=== PATIENT | male | born 1955 | race Caucasian/White ===

== ENCOUNTER → 2017-07-19 | Outpatient (CLI) | payer OTHER ==
[~2017-07-19] MED LIST: ALBUTEROL 0.083% (NEB) 2.5 MG/3 ML AMP
[2017-07-19 10:28] LABS: AADO2 Arterial 60.1 mmHg (7.0-24.0); Arterial Base Excess -1.8 mmol/L (-3.0-3); Arterial Blood Gas Oxygen Sat 86.2 mmHG (95.0-98.0); Arterial COHb 0.2 % (0.0-3.0); Arterial Fraction of Oxyhgb 85.7 % (93.0-99.0); Arterial HCO3 21.6 mmol/L (22.0-26.0); Arterial MetHb 0.4 % (0.0-1.5); Arterial Total Hemglobin 11.3 g/dl (12.0-18.0); Arterial pCO2 32.2 mmhg (35-45); MODE ROOM AIR; Site Right Brachial
== END | disposition home or self-care (01) ==
LOC: PUL 09:11
DX: C22.0 Liver cell carcinoma (principal)
CPT/HCPCS: 36600; 82803; 94060; 94726; 94729

== ENCOUNTER 2018-03-11 08:41 | Inpatient (IN) | payer OTHER ==
[2018-03-11] MEDS: ACETAMINOPHEN 650 MG SUPP PR (09:06)
[2018-03-11] MEDS: SODIUM CHLORIDE 0.9% 1L BAG IV* (09:06)
[2018-03-11 09:43] LABS: WHITE BLOOD COUNT 3.5 10^3/ul (4.8-10.8)
[2018-03-11 09:43] LABS: ABNORMAL IP MESSAGE 1; HEMATOCRIT 35.3 % (42.0-52.0); HEMOGLOBIN 10.7 g/dl (14.0-18.0); MEAN CORPUSCULAR HEMOGLOBIN 24.3 pg (29.0-33.0); MEAN CORPUSCULAR HGB CONC 30.3 g/dl (32.0-37.0); PLATELET COUNT 49 10^3/UL (140-415); POSITIVE DIFF @See below; RED BLOOD COUNT 4.41 10^6/ul (4.70-6.10); RED CELL DISTRIBUTION WIDTH 19.8 % (11.5-14.5)
[2018-03-11 09:49] LABS: ADD MAN DIFF? YES
[2018-03-11 09:50] LABS: INR 2.07; PROTIME 23.8 Sec (11.9-14.9); PT RATIO 1.9
[2018-03-11 09:51] LABS: PARTIAL THROMBOPLASTIN TIME 40.5 Sec (25.0-35.0)
[2018-03-11 09:56] LABS: LACTIC ACID 9.8 mmol/L (0.5-2.0)
[2018-03-11 10:03] LABS: ALANINE AMINOTRANSFERASE 29 IU/L (13-69); ALBUMIN 2.7 g/dl (3.3-4.9); ALBUMIN/GLOBULIN RATIO 0.61; ALKALINE PHOSPHATASE 180 IU/L (42-121); ANION GAP 18 (8-16); ASPARTATE AMINO TRANSFERASE 60 IU/L (15-46); BILIRUBIN,INDIRECT 1.8 mg/dl (0-1.1); BILIRUBIN,TOTAL 1.8 mg/dl (0.2-1.3); BLOOD UREA NITROGEN 11 mg/dl (7-20); CALCIUM 7.8 mg/dl (8.4-10.2); CARBON DIOXIDE 15 mmol/L (21-31); CHLORIDE 113 mmol/L (97-110); CREATININE 0.83 mg/dl (0.61-1.24); GLUCOSE 77 mg/dl (70-220); POTASSIUM 3.8 mmol/L (3.5-5.1); SODIUM 142 mmol/L (135-144); TOTAL PROTEIN 7.1 g/dl (6.1-8.1)
[2018-03-11 10:12] LABS: TROPONIN-I 0.067 ng/ml (0.000-0.120)
[2018-03-11 10:15] LABS: AADO2 Arterial 99.5 mmHg (7.0-24.0); Allen Test ACCEPTAB; Arterial Base Excess -10.9 mmol/L (-3.0-3); Arterial Blood Gas Oxygen Sat 93.8 mmHG (95.0-98.0); Arterial COHb 0.3 % (0.0-3.0); Arterial Fraction of Oxyhgb 93.2 % (93.0-99.0); Arterial HCO3 12.7 mmol/L (22.0-26.0); Arterial MetHb 0.3 % (0.0-1.5); Arterial pCO2 22.2 mmhg (35-45); MODE NASAL CANNULA; Site Left Radial
[2018-03-11 10:31] LABS: AMMONIA 76 umol/l (9-30)
[2018-03-11 10:40] LABS: ANISOCYTOSIS 1+ (0-0); BAND NEUTROPHILS % (M) 31 % (0-4); GIANT THROMBO% (M) 3 % (0-0); LYMPHOCYTES #M 0.2 10^3/ul (0.8-2.9); LYMPHOCYTES % (M) 8 % (15-51); METAMYELOCYTES %M 2 % (0-0); MONOCYTE #M 0.1 10^3/ul (0.3-0.9); MONOCYTES % (M) 3 % (0-11); OVALOCYTES 1+ (0-0); PLATELET ESTIMATE SIG DECREASED; POIKILOCYTOSIS 2+ (0-0); SEGMENTED NEUTROPHILS (M) % 56 % (39-77); SMUDGE%M 54 % (0-0); SPHEROCYTES 1+ (0-0)
[2018-03-11] MEDS: LIDOCAINE 1% (MPF) 5 ML VIAL (10:58)
[2018-03-11] MEDS: CEFTRIAXONE 1 GM/50 ML (PMX) 50 ML IVPB (10:59)
[2018-03-11] MEDS: LACTULOSE 30ML CUP PO ×3 (11:32→22:54)
[2018-03-11] MEDS: PIPER-TAZO 3.375 GM IV (PMX) 100 ML IVPB (11:33)
[2018-03-11] MEDS: VANCOMYCIN 1 GM (PMX) 250 ML IVPB (11:33)
[2018-03-11] MEDS: KETOROLAC 15 MG INJ IV (11:35)
[2018-03-11 11:43] LABS: FLD MN% 58.3 %; FLD PMN% 41.7 %; FLD RBC 1000 /uL; FLD WBC 230 /cmm
[2018-03-11] MEDS ORDERED: NACL 0.9% 3 ML SYG IV (12:00)
[2018-03-11] MEDS ORDERED: morphine 2 MG INJ IV (12:00)
[2018-03-11] MEDS: SOD CHLORIDE 0.9% 1,000 ML IV ×3 (12:12→20:41)
[2018-03-11 12:49] LABS: B-TYPE NATRIURETIC PEPTIDE 478 PG/ML (0-125)
[2018-03-11 12:52] LABS: FREE T4 (FREE THYROXINE) 1.52 ng/dl (0.78-2.44)
[2018-03-11] MEDS ORDERED: VANCOMYCIN IV PER PHARMACY XX (13:00)
[2018-03-11 13:10] LABS: THYROID STIMULATING HORMONE 0.578 MIU/L (0.465-4.680)
[2018-03-11 13:24] LABS: FLUID GLUCOSE 70 mg/dl; FLUID TOTAL PROTEIN < 2.0 g/dl; FLUID TYPE ASCITES FLUID
[2018-03-11] MEDS: FERROUS SULFATE (EC) 325 MG TAB PO ×2 (13:36→20:45)
[2018-03-11] MEDS: METOCLOPRAMIDE 10 MG INJ IV ×2 (13:36→22:13)
[2018-03-11] MEDS ORDERED: CEFOTAXIME 2 GM/50 ML (PMX) 50 ML IVPB (14:00)
[2018-03-11 14:11] LABS: FLD TYPE PARACENTHESIS
[2018-03-11 14:11] LABS: FLD CLARITY HAZY; FLD COLOR YELLOW
[2018-03-11 14:37] LABS: AMMONIA 27 umol/l (9-30)
[2018-03-11 14:50] LABS: LACTIC ACID 7.1 mmol/L (0.5-2.0)
[2018-03-11] MEDS: VANCOMYCIN 750 MG in SOD CHLORIDE 0.9% 150 ML IVPB (14:53)
[2018-03-11] MEDS: MEROPENEM 500MG/50 ML (PMX) 50 ML IVPB ×2 (14:53→22:13)
[2018-03-11] MEDS: IOHEXOL 14.3 MG(I)/ML (ADULT) BTL PO (15:00)
[2018-03-11 16:45] LABS: LIPASE 114 U/L (23-300)
[2018-03-11 16:49] LABS: LACTIC ACID 7.2 mmol/L (0.5-2.0)
[2018-03-11] MEDS: PANTOPRAZOLE 40 MG INJ IV (18:00)
[2018-03-11 18:46] LABS: ADD UMIC YES; UR ASCORBIC ACID NEGATIVE (NEGATIVE); UR BACTERIA MODERATE /HPF (NONE SEEN); UR BILIRUBIN (Dip) NEGATIVE (NEGATIVE); UR BLOOD (Dip) 3+ mg/dL (NEGATIVE); UR CLARITY CLOUDY (CLEAR); UR COLOR AMBER (YELLOW); UR GLUCOSE (Dip) NEGATIVE (NEGATIVE); UR KETONES (Dip) NEGATIVE (NEGATIVE); UR LEUKOCYTE ESTERASE (Dip) 3+ Leu/ul (NEGATIVE); UR NITRITE (Dip) NEGATIVE (NEGATIVE); UR RBC 110 /HPF (0-5); UR SPECIFIC GRAVITY (Dip) 1.025 (1.003-1.030); UR TOTAL PROTEIN (Dip) 2+ mg/dl (NEGATIVE); UR UROBILINOGEN (Dip) NEGATIVE (NEGATIVE); UR WBC > 182 /HPF (0-5)
[2018-03-11 19:30] LABS: LACTIC ACID 7.1 mmol/L (0.5-2.0)
[2018-03-11] MEDS: ALBUMIN HUMAN 25% 100 ML IV ×2 (20:44→22:15)
[2018-03-11 21:07] LABS: LACTIC ACID 6.6 mmol/L (0.5-2.0)
[2018-03-11] MEDS: VANCOMYCIN 1.25 GM in SOD CHLORIDE 0.9% 250 ML IVPB (22:54)
[2018-03-12] MEDS: SOD CHLORIDE 0.9% 1,000 ML IV ×4 (04:00→20:00)
[2018-03-12] MEDS: METOCLOPRAMIDE 10 MG INJ IV ×3 (05:10→20:55)
[2018-03-12] MEDS: MEROPENEM 500MG/50 ML (PMX) 50 ML IVPB ×3 (05:10→20:56)
[2018-03-12] MEDS: PANTOPRAZOLE 40 MG INJ IV ×2 (05:10→17:47)
[2018-03-12] MEDS: LACTULOSE 30ML CUP PO ×3 (05:10→20:56)
[2018-03-12 07:44] LABS: WHITE BLOOD COUNT 14.3 10^3/ul (4.8-10.8)
[2018-03-12 07:44] LABS: ABNORMAL IP MESSAGE 1; HEMATOCRIT 33.2 % (42.0-52.0); HEMOGLOBIN 9.9 g/dl (14.0-18.0); MEAN CORPUSCULAR HEMOGLOBIN 24.2 pg (29.0-33.0); MEAN CORPUSCULAR HGB CONC 29.8 g/dl (32.0-37.0); MEAN CORPUSCULAR VOLUME 81.2 fl (82.0-101.0); PLATELET COUNT 34 10^3/UL (140-415); POSITIVE DIFF @See below; RED BLOOD COUNT 4.09 10^6/ul (4.70-6.10)
[2018-03-12 07:48] LABS: ADD MAN DIFF? YES
[2018-03-12 08:00] LABS: INR 3.79; PROTIME 38.6 Sec (11.9-14.9)
[2018-03-12 08:01] LABS: PARTIAL THROMBOPLASTIN TIME 56.9 Sec (25.0-35.0)
[2018-03-12 08:06] LABS: AMMONIA 31 umol/l (9-30)
[2018-03-12 08:10] LABS: ALANINE AMINOTRANSFERASE 34 IU/L (13-69); ALBUMIN 2.5 g/dl (3.3-4.9); ALBUMIN/GLOBULIN RATIO 0.73; ALKALINE PHOSPHATASE 67 IU/L (42-121); ANION GAP 13 (8-16); ASPARTATE AMINO TRANSFERASE 53 IU/L (15-46); BILIRUBIN,INDIRECT 1.6 mg/dl (0-1.1); BILIRUBIN,TOTAL 1.8 mg/dl (0.2-1.3); BLOOD UREA NITROGEN 21 mg/dl (7-20); CALCIUM 7.3 mg/dl (8.4-10.2); CARBON DIOXIDE 16 mmol/L (21-31); CHLORIDE 117 mmol/L (97-110); CREATININE 1.22 mg/dl (0.61-1.24); GLUCOSE 91 mg/dl (70-220); POTASSIUM 4.5 mmol/L (3.5-5.1); SODIUM 141 mmol/L (135-144); TOTAL PROTEIN 5.9 g/dl (6.1-8.1)
[2018-03-12 08:23] LABS: HDL CHOLESTEROL 21 mg/dl (30-78); MAGNESIUM 1.5 mg/dl (1.7-2.5); TRIGLYCERIDES 70 mg/dl (0-149)
[2018-03-12] MEDS: FERROUS SULFATE (EC) 325 MG TAB PO ×3 (08:23→20:55)
[2018-03-12] MEDS: CHOLECALCIFEROL 1,000 UNIT TAB PO (08:23)
[2018-03-12 08:32] LABS: CHOLESTEROL < 50 mg/dl (100-200)
[2018-03-12 08:37] LABS: ANISOCYTOSIS 1+ (0-0); BAND NEUTROPHILS #M 5.1 10^3/ul (0.0-0.6); BAND NEUTROPHILS % (M) 36 % (0-4); LYMPHOCYTES #M 0.2 10^3/ul (0.8-2.9); LYMPHOCYTES % (M) 2 % (15-51); MICROCYTOSIS 1+ (0-0); MONOCYTE #M 0.4 10^3/ul (0.3-0.9); MONOCYTES % (M) 3 % (0-11); PLATELET ESTIMATE DECREASED; POIKILOCYTOSIS 1+ (0-0); POLYCHROMASIA 1+ (0-0); SEG NEUT #M 9.2 10^3/ul (1.6-7.5); SEGMENTED NEUTROPHILS (M) % 59 % (39-77); SMUDGE%M 3 % (0-0)
[2018-03-12] MEDS ORDERED: FAMOTIDINE 20 MG TAB PO (09:00)
[2018-03-12] MEDS ORDERED: CEFTRIAXONE 1 GM/NS 50 ML IVPB (11:00)
[2018-03-12] MEDS: VANCOMYCIN 1.25 GM in SOD CHLORIDE 0.9% 250 ML IVPB (11:01)
[2018-03-12 12:10] LABS: LACTIC ACID 3.6 mmol/L (0.5-2.0)
[2018-03-12] MEDS: PHYTONADIONE 10 MG/ML INJ SC (12:28)
[2018-03-12] MEDS: MAGNESIUM SULFATE 3 GM in DEXTROSE 5% 100 ML IVPB (14:09)
[2018-03-12] MEDS: metroNIDAZOLE 500 MG/NS (PMX) 100 ML IVPB ×2 (14:10→20:55)
[2018-03-12 18:26] LABS: TYPE AND SCREEN 1 1
[2018-03-12] MEDS: DIPHENHYDRAMINE 50 MG INJ IV (19:51)
[2018-03-12 22:41] LABS: PRETRANSFUSION BILIRUBIN 1.6 mg/dl
[2018-03-12 22:42] LABS: POST-TRANSFUSION BILIRUBIN 1.3 mg/dl
[2018-03-12 23:21] LABS: ADD UMIC YES; UR AMORPHOUS CRYSTAL FEW /HPF (NONE SEEN); UR ASCORBIC ACID NEGATIVE (NEGATIVE); UR BACTERIA FEW /HPF (NONE SEEN); UR BILIRUBIN (Dip) NEGATIVE (NEGATIVE); UR BLOOD (Dip) 3+ mg/dL (NEGATIVE); UR CLARITY CLOUDY (CLEAR); UR COLOR AMBER (YELLOW); UR GLUCOSE (Dip) NEGATIVE (NEGATIVE); UR KETONES (Dip) NEGATIVE (NEGATIVE); UR LEUKOCYTE ESTERASE (Dip) 2+ Leu/ul (NEGATIVE); UR NITRITE (Dip) NEGATIVE (NEGATIVE); UR RBC 53 /HPF (0-5); UR SPECIFIC GRAVITY (Dip) 1.024 (1.003-1.030); UR SQUAMOUS EPITHELIAL CELL FEW /HPF (FEW); UR TOTAL PROTEIN (Dip) 1+ mg/dl (NEGATIVE); UR UROBILINOGEN (Dip) NEGATIVE (NEGATIVE); UR WBC 102 /HPF (0-5)
[2018-03-13] MEDS: SOD CHLORIDE 0.9% 1,000 ML IV ×4 (00:41→22:29)
[2018-03-13] MEDS: metroNIDAZOLE 500 MG/NS (PMX) 100 ML IVPB ×2 (05:10→12:59)
[2018-03-13] MEDS: MEROPENEM 500MG/50 ML (PMX) 50 ML IVPB ×2 (05:10→12:59)
[2018-03-13] MEDS: PANTOPRAZOLE 40 MG INJ IV ×2 (05:10→17:42)
[2018-03-13] MEDS: METOCLOPRAMIDE 10 MG INJ IV ×3 (05:11→19:57)
[2018-03-13] MEDS: LACTULOSE 30ML CUP PO ×3 (05:11→19:57)
[2018-03-13] MEDS: morphine LIQ (10 MG/5 ML) CUP PO (06:09)
[2018-03-13 06:41] LABS: ABNORMAL IP MESSAGE 1; HEMATOCRIT 29.6 % (42.0-52.0); MEAN CORPUSCULAR HEMOGLOBIN 24.3 pg (29.0-33.0); MEAN CORPUSCULAR HGB CONC 30.4 g/dl (32.0-37.0); POSITIVE DIFF @See below; RED CELL DISTRIBUTION WIDTH 19.7 % (11.5-14.5)
[2018-03-13 06:41] LABS: WHITE BLOOD COUNT 10.4 10^3/ul (4.8-10.8)
[2018-03-13] MEDS ORDERED: PROPOFOL 200 MG INJ (07:00)
[2018-03-13 07:02] LABS: INR 2.03; PROTIME 23.4 Sec (11.9-14.9); PT RATIO 1.8
[2018-03-13 07:03] LABS: ALANINE AMINOTRANSFERASE 29 IU/L (13-69); ALBUMIN 2.3 g/dl (3.3-4.9); ALBUMIN/GLOBULIN RATIO 0.71; ALKALINE PHOSPHATASE 109 IU/L (42-121); ANION GAP 8 (8-16); ASPARTATE AMINO TRANSFERASE 54 IU/L (15-46); BILIRUBIN,INDIRECT 1.2 mg/dl (0-1.1); BILIRUBIN,TOTAL 1.2 mg/dl (0.2-1.3); BLOOD UREA NITROGEN 22 mg/dl (7-20); CALCIUM 7.5 mg/dl (8.4-10.2); CARBON DIOXIDE 21 mmol/L (21-31); CHLORIDE 116 mmol/L (97-110); GLUCOSE 96 mg/dl (70-220); PARTIAL THROMBOPLASTIN TIME 44.5 Sec (25.0-35.0); POTASSIUM 4.2 mmol/L (3.5-5.1); SODIUM 141 mmol/L (135-144); TOTAL PROTEIN 5.5 g/dl (6.1-8.1)
[2018-03-13 07:08] LABS: LACTIC ACID 1.4 mmol/L (0.5-2.0)
[2018-03-13 07:12] LABS: AMMONIA < 9 umol/l (9-30)
[2018-03-13 07:16] LABS: PLATELET COUNT 28 10^3/UL (140-415)
[2018-03-13 07:17] LABS: ADD MAN DIFF? YES
[2018-03-13 07:23] LABS: PHOSPHORUS 1.8 mg/dl (2.5-4.9)
[2018-03-13 07:23] LABS: MAGNESIUM 2.5 mg/dl (1.7-2.5)
[2018-03-13] MEDS: CHOLECALCIFEROL 1,000 UNIT TAB PO (08:21)
[2018-03-13] MEDS: FERROUS SULFATE (EC) 325 MG TAB PO ×3 (08:21→19:57)
[2018-03-13 09:18] LABS: ANISOCYTOSIS 1+ (0-0); BAND NEUTROPHILS % (M) 20 % (0-4); EOSINOPHILS % (M) 2 % (0-7); ERYTHROBLAST% (NRBC) (M) 1 % (0-0); GIANT THROMBO% (M) 3 % (0-0); LYMPHOCYTES #M 0.3 10^3/ul (0.8-2.9); LYMPHOCYTES % (M) 3 % (15-51); MONOCYTE #M 0.3 10^3/ul (0.3-0.9); MONOCYTES % (M) 3 % (0-11); MYELOCYTES #M 0.1 10^3/ul (0.0-0.0); MYELOCYTES % (M) 1 % (0-0); PLATELET ESTIMATE SIG DECREASED; POIKILOCYTOSIS 3+ (0-0); SEG NEUT #M 7.6 10^3/ul (1.6-7.5); SEGMENTED NEUTROPHILS (M) % 71 % (39-77); SMUDGE%M 37 % (0-0)
[2018-03-13] MEDS: CIPROFLOXACIN 400MG/D5W 200 ML (11:21)
[2018-03-13] MEDS: traMADol 50 MG TAB PO (12:17)
[2018-03-13] MEDS: POTASSIUM PHOSPHATE 15 MM in SOD CHLORIDE 0.9% 250 ML IVPB (13:03)
[2018-03-13] MEDS: CEFTRIAXONE 1 GM/50 ML (PMX) 50 ML IVPB (15:31)
[2018-03-13] MEDS: PROPOFOL 20 ML (16:19)
[2018-03-13] MEDS: GUAIFENESIN/CODEINE 5ML CUP PO (23:27)
[2018-03-14] MEDS: morphine LIQ (10 MG/5 ML) CUP PO ×2 (00:41→04:26)
[2018-03-14] MEDS: LACTULOSE 30ML CUP PO ×3 (05:20→21:43)
[2018-03-14] MEDS: PANTOPRAZOLE 40 MG INJ IV ×2 (05:20→17:05)
[2018-03-14] MEDS: METOCLOPRAMIDE 10 MG INJ IV ×3 (05:21→21:44)
[2018-03-14] MEDS: SOD CHLORIDE 0.9% 1,000 ML IV (05:25)
[2018-03-14 06:10] LABS: ADD MAN DIFF? NO
[2018-03-14 06:33] LABS: PROTIME 19.4 Sec (11.9-14.9); PT RATIO 1.5
[2018-03-14 06:34] LABS: PARTIAL THROMBOPLASTIN TIME 40.2 Sec (25.0-35.0)
[2018-03-14 06:37] LABS: AMMONIA < 9 umol/l (9-30)
[2018-03-14 06:39] LABS: WHITE BLOOD COUNT 6.1 10^3/ul (4.8-10.8)
[2018-03-14 06:39] LABS: ABNORMAL IP MESSAGE 1; BASOPHILS % 0.5 % (0.0-2.0); EOSINOPHILS # 0.1 10^3/ul (0.0-0.5); EOSINOPHILS % 2.3 % (0.0-7.0); HEMATOCRIT 32.7 % (42.0-52.0); HEMOGLOBIN 9.9 g/dl (14.0-18.0); LYMPHOCYTES # 0.5 10^3/ul (0.8-2.9); MEAN CORPUSCULAR HEMOGLOBIN 24.3 pg (29.0-33.0); MEAN CORPUSCULAR HGB CONC 30.3 g/dl (32.0-37.0); MEAN CORPUSCULAR VOLUME 80.1 fl (82.0-101.0); MONOCYTE # 0.5 10^3/ul (0.3-0.9); MONOCYTES % 8.8 % (0.0-11.0); NEUTROPHIL # 4.8 10^3/ul (1.6-7.5); NEUTROPHILS % 78.4 % (39.0-77.0); POSITIVE DIFF @See below; RED BLOOD COUNT 4.08 10^6/ul (4.70-6.10); RED CELL DISTRIBUTION WIDTH 19.9 % (11.5-14.5)
[2018-03-14 06:44] LABS: PLATELET COUNT 36 10^3/UL (140-415)
[2018-03-14 06:47] LABS: MAGNESIUM 2.3 mg/dl (1.7-2.5)
[2018-03-14 06:47] LABS: PHOSPHORUS 2.2 mg/dl (2.5-4.9)
[2018-03-14 06:59] LABS: ALANINE AMINOTRANSFERASE 35 IU/L (13-69); ALBUMIN 2.6 g/dl (3.3-4.9); ALBUMIN/GLOBULIN RATIO 0.66; ALKALINE PHOSPHATASE 194 IU/L (42-121); ANION GAP 11 (8-16); ASPARTATE AMINO TRANSFERASE 69 IU/L (15-46); BILIRUBIN,INDIRECT 1.1 mg/dl (0-1.1); BILIRUBIN,TOTAL 1.1 mg/dl (0.2-1.3); BLOOD UREA NITROGEN 17 mg/dl (7-20); CALCIUM 7.6 mg/dl (8.4-10.2); CARBON DIOXIDE 21 mmol/L (21-31); CHLORIDE 114 mmol/L (97-110); CREATININE 0.72 mg/dl (0.61-1.24); GLUCOSE 93 mg/dl (70-220); POTASSIUM 4.4 mmol/L (3.5-5.1); SODIUM 142 mmol/L (135-144); TOTAL PROTEIN 6.5 g/dl (6.1-8.1)
[2018-03-14] MEDS: GUAIFENESIN/CODEINE 5ML CUP PO (08:18)
[2018-03-14] MEDS: traMADol 50 MG TAB PO (08:18)
[2018-03-14] MEDS: CHOLECALCIFEROL 1,000 UNIT TAB PO (08:19)
[2018-03-14] MEDS: FERROUS SULFATE (EC) 325 MG TAB PO ×3 (08:19→21:43)
[2018-03-14 09:50] LABS: IRON 57 ug/dl (35-150)
[2018-03-14 09:59] LABS: % IRON SATURATION 18 % SAT (22-52); TOTAL IRON BINDING CAPACITY 314 ug/dl (241-421)
[2018-03-14] MEDS ORDERED: FUROSEMIDE 40 MG TAB PO (10:00)
[2018-03-14 10:25] LABS: FERRITIN 39.3 ng/ml (11.1-264.0)
[2018-03-14] MEDS: METOPROLOL (XL) 25 MG TAB PO (10:29)
[2018-03-14] MEDS: AMLODIPINE 5 MG TAB PO (10:30)
[2018-03-14] MEDS: FUROSEMIDE 40 MG TAB PO ×2 (10:30→17:05)
[2018-03-14] MEDS: POTASSIUM PHOSPHATE 15 MM in SOD CHLORIDE 0.9% 250 ML IVPB (10:31)
[2018-03-14] MEDS ORDERED: ONDANSETRON 4 MG INJ (15:25)
[2018-03-14] MEDS ORDERED: ONDANSETRON 4 MG INJ IV (15:30)
[2018-03-14] MEDS: LEVOFLOXACIN 500 MG TAB PO (15:53)
[2018-03-14] MEDS: metroNIDAZOLE 500 MG TAB PO ×2 (15:53→22:44)
[2018-03-15] MEDS: GUAIFENESIN/DM 5ML CUP PO (02:13)
[2018-03-15] MEDS: LACTULOSE 30ML CUP PO (06:05)
[2018-03-15] MEDS: METOCLOPRAMIDE 10 MG INJ IV (06:06)
[2018-03-15] MEDS: FUROSEMIDE 40 MG TAB PO (06:06)
[2018-03-15] MEDS: LEVOFLOXACIN 500 MG TAB PO (06:06)
[2018-03-15] MEDS: metroNIDAZOLE 500 MG TAB PO (06:06)
[2018-03-15] MEDS: PANTOPRAZOLE 40 MG INJ IV (06:10)
[2018-03-15 06:47] LABS: ADD MAN DIFF? NO
[2018-03-15 06:50] LABS: WHITE BLOOD COUNT 3.3 10^3/ul (4.8-10.8)
[2018-03-15 06:50] LABS: ABNORMAL IP MESSAGE 1; BASOPHILS % 0.3 % (0.0-2.0); EOSINOPHILS # 0.1 10^3/ul (0.0-0.5); EOSINOPHILS % 3.6 % (0.0-7.0); HEMATOCRIT 29.4 % (42.0-52.0); HEMOGLOBIN 8.9 g/dl (14.0-18.0); LYMPHOCYTES # 0.6 10^3/ul (0.8-2.9); LYMPHOCYTES % 16.9 % (15.0-51.0); MEAN CORPUSCULAR HEMOGLOBIN 23.5 pg (29.0-33.0); MEAN CORPUSCULAR HGB CONC 30.3 g/dl (32.0-37.0); MEAN CORPUSCULAR VOLUME 77.6 fl (82.0-101.0); MONOCYTE # 0.6 10^3/ul (0.3-0.9); MONOCYTES % 18.4 % (0.0-11.0); NEUTROPHIL # 1.9 10^3/ul (1.6-7.5); NEUTROPHILS % 58.4 % (39.0-77.0); PLATELET COUNT 35 10^3/UL (140-415); POSITIVE DIFF @See below; RED BLOOD COUNT 3.79 10^6/ul (4.70-6.10); RED CELL DISTRIBUTION WIDTH 19.9 % (11.5-14.5)
[2018-03-15 07:09] LABS: INR 1.72; PROTIME 20.5 Sec (11.9-14.9); PT RATIO 1.6
[2018-03-15 07:10] LABS: PARTIAL THROMBOPLASTIN TIME 45.1 Sec (25.0-35.0)
[2018-03-15 07:12] LABS: ALANINE AMINOTRANSFERASE 32 IU/L (13-69); ALBUMIN 2.5 g/dl (3.3-4.9); ALBUMIN/GLOBULIN RATIO 0.71; ALKALINE PHOSPHATASE 168 IU/L (42-121); ANION GAP 8 (8-16); ASPARTATE AMINO TRANSFERASE 63 IU/L (15-46); BILIRUBIN,INDIRECT 1.3 mg/dl (0-1.1); BILIRUBIN,TOTAL 1.3 mg/dl (0.2-1.3); BLOOD UREA NITROGEN 14 mg/dl (7-20); CALCIUM 7.8 mg/dl (8.4-10.2); CARBON DIOXIDE 26 mmol/L (21-31); CHLORIDE 113 mmol/L (97-110); CREATININE 0.76 mg/dl (0.61-1.24); GLUCOSE 82 mg/dl (70-220); POTASSIUM 4.4 mmol/L (3.5-5.1); SODIUM 143 mmol/L (135-144)
[2018-03-15 07:21] LABS: AMMONIA < 9 umol/l (9-30)
[2018-03-15 07:24] LABS: MAGNESIUM 1.9 mg/dl (1.7-2.5)
[2018-03-15 07:24] LABS: PHOSPHORUS 2.5 mg/dl (2.5-4.9)
[2018-03-15] MEDS: FERROUS SULFATE (EC) 325 MG TAB PO (08:21)
[2018-03-15] MEDS: CHOLECALCIFEROL 1,000 UNIT TAB PO (08:21)
[2018-03-15] MEDS: AMLODIPINE 5 MG TAB PO (08:21)
[2018-03-15] MEDS: METOPROLOL (XL) 25 MG TAB PO (08:21)
== END 2018-03-15 13:48 | disposition home or self-care (01) | DRG 871 ==
LOC: 2NE 03-14 16:50 → E/R 08:41 → TEL 03-12 21:39
PROVIDERS: Family Medicine
PROC: 06L38CZ Occlusion of Esophageal Vein with Extraluminal Device, Via Natural or Artificial Opening Endoscopic (ICD-10-PCS; principal; 2018-03-13 10:40)
PROC: 0W9G3ZZ Drainage of Peritoneal Cavity, Percutaneous Approach (ICD-10-PCS; 2018-03-13 10:40)
PROC: 30233K1 Transfusion of Nonautologous Frozen Plasma into Peripheral Vein, Percutaneous Approach (ICD-10-PCS; 2018-03-13 10:40)
DX: A41.9 Sepsis, unspecified organism (principal); R65.21 Severe sepsis with septic shock; I85.11 Secondary esophageal varices with bleeding; N39.0 Urinary tract infection, site not specified; D61.818 Other pancytopenia; E87.2 Acidosis; C22.0 Liver cell carcinoma; C64.9 Malignant neoplasm of unspecified kidney, except renal pelvis; D68.4 Acquired coagulation factor deficiency; K92.1 Melena; R18.8 Other ascites; B96.20 Unspecified Escherichia coli [E. coli] as the cause of diseases classified elsewhere; K74.60 Unspecified cirrhosis of liver; K31.89 Other diseases of stomach and duodenum; K52.9 Noninfective gastroenteritis and colitis, unspecified; I10 Essential (primary) hypertension; G89.29 Other chronic pain; M54.9 Dorsalgia, unspecified; R11.2 Nausea with vomiting, unspecified; Z87.891 Personal history of nicotine dependence
CPT/HCPCS: 36415; 36430; 36600; 71045; 74176; 80053; 80061; 81001; 82140; 82728; 82803; 82945; 83036; 83540; 83605; 83690; 83735; 83880; 84100; 84157; 84439; 84443; 84484; 85025; 85610; 85730; 86078; 86850; 86900; 86901; 87040; 87070; 87075; 87086; 87116; 87400; 88104; 88305; 89051; 93005; 96374; 99291-25

== ENCOUNTER 2018-05-23 14:11 | Emergency (ER) | payer OTHER ==
[2018-05-23 17:59] LABS: ADD MAN DIFF? NO
[2018-05-23 18:04] LABS: ABNORMAL IP MESSAGE 1; BASOPHILS % 0.4 % (0.0-2.0); EOSINOPHILS # 0.2 10^3/ul (0.0-0.5); EOSINOPHILS % 5.7 % (0.0-7.0); HEMATOCRIT 32.4 % (42.0-52.0); HEMOGLOBIN 10.6 g/dl (14.0-18.0); LYMPHOCYTES # 0.5 10^3/ul (0.8-2.9); LYMPHOCYTES % 18.9 % (15.0-51.0); MEAN CORPUSCULAR HEMOGLOBIN 28.7 pg (29.0-33.0); MEAN CORPUSCULAR HGB CONC 32.7 g/dl (32.0-37.0); MEAN CORPUSCULAR VOLUME 87.8 fl (82.0-101.0); MEAN PLATELET VOLUME 10.6 fl (7.4-10.4); MONOCYTE # 0.3 10^3/ul (0.3-0.9); MONOCYTES % 9.8 % (0.0-11.0); NEUTROPHIL # 1.7 10^3/ul (1.6-7.5); NEUTROPHILS % 64.8 % (39.0-77.0); PLATELET COUNT 56 10^3/UL (140-415); POSITIVE DIFF @See below; RED BLOOD COUNT 3.69 10^6/ul (4.70-6.10); RED CELL DISTRIBUTION WIDTH 17.9 % (11.5-14.5)
[2018-05-23 18:04] LABS: WHITE BLOOD COUNT 2.7 10^3/ul (4.8-10.8)
[2018-05-23] MEDS: morphine 4 MG/ML VIAL IV (18:04)
[2018-05-23] MEDS: ONDANSETRON 4 MG INJ IV (18:04)
[2018-05-23 18:22] LABS: ALANINE AMINOTRANSFERASE 33 IU/L (13-69); ALBUMIN 2.9 g/dl (3.3-4.9); ALBUMIN/GLOBULIN RATIO 0.64; ALKALINE PHOSPHATASE 175 IU/L (42-121); ANION GAP 7 (5-13); ASPARTATE AMINO TRANSFERASE 80 IU/L (15-46); BILIRUBIN,INDIRECT 0.8 mg/dl (0-1.1); BILIRUBIN,TOTAL 0.8 mg/dl (0.2-1.3); BLOOD UREA NITROGEN 12 mg/dl (7-20); CALCIUM 8.2 mg/dl (8.4-10.2); CARBON DIOXIDE 22 mmol/L (21-31); CHLORIDE 112 mmol/L (97-110); CREATININE 0.61 mg/dl (0.61-1.24); Estimated GFR > 60 mL/min (>60); GLUCOSE 118 mg/dl (70-220); LIPASE 429 U/L (23-300); POTASSIUM 4.3 mmol/L (3.5-5.1); SODIUM 141 mmol/L (135-144); TOTAL PROTEIN 7.4 g/dl (6.1-8.1)
[2018-05-23 18:48] LABS: INR 1.63; PARTIAL THROMBOPLASTIN TIME 39.2 Sec (23.0-35.0); PROTIME 19.7 Sec (11.9-14.9); PT RATIO 1.5
== END 2018-05-23 19:14 | disposition home or self-care (01) ==
LOC: E/R 14:11
DX: R18.8 Other ascites (principal); R10.84 Generalized abdominal pain; I10 Essential (primary) hypertension; R11.10 Vomiting, unspecified; Z85.05 Personal history of malignant neoplasm of liver
CPT/HCPCS: 36415; 80053; 83690; 85025; 85610; 85730; 96374; 96375; 99284-25

== ENCOUNTER 2018-05-24 08:00 | Emergency (ER) | payer OTHER ==
[2018-05-24] MEDS: LIDOCAINE 1% (MPF) 5 ML VIAL (11:46)
== END 2018-05-24 11:47 | disposition home or self-care (01) ==
LOC: E/R 08:00
DX: Z48.817 Encounter for surgical aftercare following surgery on the skin and subcutaneous tissue (principal); I10 Essential (primary) hypertension; Z85.05 Personal history of malignant neoplasm of liver
CPT/HCPCS: 99285-25; Z7502

== ENCOUNTER 2018-06-10 10:16 | Emergency (ER) | payer OTHER ==
[2018-06-10] MEDS: LIDOCAINE 1% (MPF) 5 ML VIAL (14:30)
== END 2018-06-10 15:50 | disposition home or self-care (01) ==
LOC: E/R 10:16
DX: R18.8 Other ascites (principal); I10 Essential (primary) hypertension; Z85.05 Personal history of malignant neoplasm of liver; Z87.891 Personal history of nicotine dependence
CPT/HCPCS: 99285-25; Z7502

== ENCOUNTER 2018-06-11 11:22 | Emergency (ER) | payer OTHER ==
[2018-06-11] MEDS: HYDROCODONE/APAP (5/325) TAB PO (13:32)
[2018-06-11] MEDS: FUROSEMIDE 20 MG TAB PO (13:33)
== END 2018-06-11 15:13 | disposition home or self-care (01) ==
LOC: E/R 11:22
DX: Z48.817 Encounter for surgical aftercare following surgery on the skin and subcutaneous tissue (principal); I10 Essential (primary) hypertension; Z87.891 Personal history of nicotine dependence
CPT/HCPCS: 99283; Z7502